=== PATIENT | male | born 1985 | race Hispanic/Latino ===

== ENCOUNTER 2021-03-20 20:51 | Emergency (ER) | payer OTHER ==
[~2021-03-20] VITALS: Ht 172.7 cm; Wt 106.6 kg
[2021-03-20 20:52] VITALS: BP 160/97
== END 2021-03-20 23:09 | disposition left against medical advice (07) ==
LOC: EDH 20:51
DX: R07.0 Pain in throat (principal); Z53.21 Procedure and treatment not carried out due to patient leaving prior to being seen by health care provider

== ENCOUNTER 2021-08-30 09:14 | Emergency (ER) | payer OTHER ==
[~2021-08-30] VITALS: Ht 170.2 cm; Wt 104.3 kg
[2021-08-30] MEDS ORDERED: PENI500T2 PO (11:26)
[2021-08-30] MEDS ORDERED: IBUP-2070 PO (11:26)
[2021-08-30 11:34] VITALS: BP 131/84
== END 2021-08-30 11:33 | disposition home or self-care (01) ==
LOC: EDH 09:14
DX: K04.7 Periapical abscess without sinus (principal); K02.9 Dental caries, unspecified; Z86.16 Personal history of COVID-19

== ENCOUNTER → 2021-10-25 | Outpatient (CLI) | payer OTHER ==
[~2021-10-25] MED LIST: IBUP-2070 PO; PENI500T2 PO
== END | disposition home or self-care (01) ==
LOC: RAH 09:35
PROVIDERS: ATTEND Physical Medicine & Rehabilitation
DX: S39.012A Strain of muscle, fascia and tendon of lower back, initial encounter (principal); M48.061 Spinal stenosis, lumbar region without neurogenic claudication; X58.XXXA Exposure to other specified factors, initial encounter; Y93.89 Activity, other specified; Y92.89 Other specified places as the place of occurrence of the external cause; Y99.8 Other external cause status; M51.16 Intervertebral disc disorders with radiculopathy, lumbar region
CPT/HCPCS: 72148